=== PATIENT | female | born 1995 ===

== ENCOUNTER 2018-04-09 04:30 | Inpatient (IN) | payer OTHER ==
[~2018-04-09] VITALS: Ht 160 cm; Wt 78.5 kg
[2018-04-09 06:35] LABS: ABSOLUTE BASOPHIL COUNT 0 /CUMM (0.0-0.2); ABSOLUTE EOSINOPHIL COUNT 0 /CUMM (0.0-0.7); ABSOLUTE GRANULOCYTE CT 7.2 /CUMM (1.4-6.5); ABSOLUTE LYMPH COUNT 2.5 /CUMM (1.2-3.4); ABSOLUTE MONOCYTE COUNT 0.9 /CUMM (0.10-0.60); BASOPHIL % 0.4 % (0.0-2.0); EOSINOPHIL % 0.1 % (0-5); GRANULOCYTE % 67.8 % (42.2-75.2); HEMATOCRIT 32.9 % (37-47); MEAN CORPUSCULAR HGB 29.5 PG (27.0-31.0); MEAN CORPUSCULAR HGB CONC 33.6 G/DL (33.0-37.0); MEAN CORPUSCULAR VOLUME 87.9 FL (81.0-99.0); MEAN PLATELET VOLUME 8.5 FL (7.4-10.4); PLATELET COUNT 271 /CUMM (130-400); RBC DISTRIBUTION WIDTH 12.6 % (11.5-14.5); RED BLOOD CELL CT 3.74 /CUMM (4.20-5.40); WHITE BLOOD CELL COUNT 10.6 /CUMM (4.8-10.8)
[2018-04-09] MEDS ORDERED: PRENATAL TABLE1 EAC2 PO (09:05)
--- NOTE | 2018-04-09 14:27 | PN- Obstetrical ---
Subjective Subjective: CANT FEEL A THING Objective Last 24 Hrs of Vital Signs/I&O Intake & Output 04/09 1600 04/09 0800 04/09 0000 Intake Total Output Total Balance Patient 173 lb Weight Physical Exam: PE PETITE BF IN NAD ABD SOFT 3400 EXT -EDEMA Obstetric Exam Dilation (cm): 7 Effacement (%): 100 Station: 0 Membranes: AROM Fluid: clear Multiple Gestation? No Contractions: Q 1 MINUTE Assessment/Plan Assessment/Plan ASSESS TERM HSV PLAN DECREASE PITOCIN OBSERVE FOR BENADYRL
--- NOTE | 2018-04-09 16:41 | History & Physical Pre-Op ---
General Information and HPI MD Statement: I have seen and personally examined BRANDY MENDOZA and documented this H&P. The patient is a 22 year old F who presented with a patient stated chief complaint of contractions every minute []. History of Present Illness: 22-year-old 1 para 0 at 39 weeks gestation whose care was started with Dr. Loretta Ludwig in August the patient had had a herpes outbreak she was placed on Valtrex on she's had no further outbreaks she did not continue her Valtrex on she denied discussed a section for delivery and the patient is adamant she wants a vaginal delivery she is aware of the risks of herpes i.e. retardation blindness she is aware of asymptomatic shedding of her herpesvirus despite her lack of outbreaks and she desires a vaginal delivery. She has contractions that are 1-2 minutes apart she received therapeutic rest no thrush made to 4 cm. Plan is for an epidural augmentation with Pitocin Allergies/Medications Allergies: Coded Allergies: No Known Allergies (04/09/18) Home Med list Vit No.130/Iron/FA ( Tablet) 27 MG IRON-800 MCG TABLET 1 TAB PO DAILY (Reported) Past History Surgical History Pertinent Surgical History: none Past Family/Social History Psychosocial History Smoking Status: Never Smoked Review of Systems Review of Systems: They have 13 point review of systems stated in HPI Exam & Diagnostic Data Last 24 Hrs of Vital Signs/I&O Intake & Output / 1600 06/07 0800 06/ 0000 Intake Total Output Total Balance Patient 173 lb Weight Physical Exam: Systemic T black female classes HEENT anicteric Abdomen soft estimated weight 3400 g Pelvic is 4 cm 90% vertex bulging bag bloody show Extremities +1 edema negative Homans Assessment/Plan Assessment/Plan: Assessment is term labor As Ranked By This Provider Problem List: 1.
--- NOTE | 2018-04-09 18:41 | Labor & Delivery Summary ---
Delivery Summary Vaginal Delivery: Vaginal: vertex Episiotomy/Lacerations: Type: Right mediolateral Repair: 30 Anesthesia: Block Placenta: Placenta: spontanteous, normal, 3 vessel Anesthesia: block Baby's Weight: 7 lbs. 10 oz. Additional Comments: Normal spontaneous vaginal delivery with after coming meconium over right mediolateral three-vessel cord clamped and cut handed to mom after delivery suction with a bulb placenta by continuous cord traction intact consent placenta by mediolateral repaired in layers with 30 under block rectum and cervix free of sutures after delivery patient is Rh+ positive O+
[2018-04-10 08:25] LABS: ABSOLUTE BASOPHIL COUNT 0 /CUMM (0.0-0.2); BASOPHIL % 0.3 % (0.0-2.0); MEAN CORPUSCULAR HGB CONC 33.8 G/DL (33.0-37.0); RBC DISTRIBUTION WIDTH 12.7 % (11.5-14.5); RED BLOOD CELL CT 3.05 /CUMM (4.20-5.40)
[2018-04-10 08:32] LABS: ABSOLUTE EOSINOPHIL COUNT 0.1 /CUMM (0.0-0.7); ABSOLUTE GRANULOCYTE CT 11.5 /CUMM (1.4-6.5); ABSOLUTE LYMPH COUNT 2.7 /CUMM (1.2-3.4); EOSINOPHIL % 0.5 % (0-5); GRANULOCYTE % 75.3 % (42.2-75.2); MEAN CORPUSCULAR HGB 29.5 PG (27.0-31.0); MEAN CORPUSCULAR VOLUME 87.3 FL (81.0-99.0); MEAN PLATELET VOLUME 8.6 FL (7.4-10.4); PLATELET COUNT 212 /CUMM (130-400); WHITE BLOOD CELL COUNT 15.3 /CUMM (4.8-10.8)
[2018-04-10 08:39] LABS: HEMATOCRIT 26.6 % (37-47)
[2018-04-10] MEDS ORDERED: IBUPROFEN800 M1 PO (13:49)
--- NOTE | 2018-04-10 13:53 | PN- Post Delivery/GYN ---
Subjective Subjective: NO COMPLAINTS Objective Last 24 Hrs of Vital Signs/I&O Vital Signs Date Time Temp Pulse Resp B/P B/P Pulse O2 O2 Flow FiO2 Mean Ox Delivery Rate 04/09 1820 100.3 Physical Exam: PE THIN IN NAD HEENT PERRLA EOMI ABD SOFT NT FUNDUS FIRM NT LOCHIA MINIMAL Assessment/Plan Assessment/Plan ASSESS S/P PLAN D/C IN AM
--- NOTE | 2018-04-11 09:34 | PN- OBGYN ---
Surgical Brief Attending Note Brief Attending Note: Seen and evaluated Doing well without complaints Not breast feeding but formula instead Declines tdap Declines depoprovera Vitals stable Aox3 Hct 26.6 and O positive A/p PPD #2 DC home Anemia. No findings of orthostatic changes. Continue iron supplementatoin Breast care. Tight fitting bra to prevent engorgement Pain mgmt strategies reviewed Declines tdap but counseling provided on same with benefits to her and Declines depo but may consider ocps. This may be started in 3 weeks to prevent unintended . Follow up 2-3 days at [facility] and 4-[address] Cuevas.
== END 2018-04-11 10:00 | DRG 560 ==
LOC: CBCO 04:30 → GNO 06:20
PROVIDERS: Specialist
PROC: 0W8NXZZ Division of Female Perineum, External Approach (ICD-10-PCS; principal; 2018-04-09)
PROC: 10E0XZZ Delivery of Products of Conception, External Approach (ICD-10-PCS; principal; 2018-04-09)
DX: O98.32 Other infections with a predominantly sexual mode of transmission complicating childbirth (principal); O90.81 Anemia of the puerperium; A60.00 Herpesviral infection of urogenital system, unspecified; Z3A.39 39 weeks gestation of pregnancy; Z37.0 Single live birth
CPT/HCPCS: GNOP; GNOS; 81001; 87086; G0378; G0463; J0131; J1050; J1200; J7120